=== PATIENT | female | born 1945 | race Caucasian/White ===

== ENCOUNTER 2017-02-16 11:26 | Day surgery (SDC) | payer MEDICARE, OTHER ==
--- NOTE | ~2017-02-16 | EGD ---
EGD REPORT [facility] [address] [address] NAME: RIANA WALLS : [birth year] STATUS : REG [facility] PAT#: [id number] AGE: 71 ADM/REG DATE : 02/16/17 MR#: [id number] REPORT SERV DATE: 02/16/17 DICTATED BY: ELIAS FRANCO DATE: 02/16/17 REPORT STATUS : Draft [facility]ANS[facility]IBED [facility]: [facility] DATE: 02/16/17 Endoscopy Center Patient Name: Riana Walls Date of : 1945 Attending MD: ELIAS FRANCO MD Procedure Date No Time: 02/16/2017 Procedure: Upper GI endoscopy Indications: Epigastric abdominal pain, Nausea, Weight loss Referring MD: MARLA Yip MD, NICOLE STEPHENSON JR., MD Medicines: as per anesthesia Complications: No immediate complications. Procedure: Pre-Anesthesia Assessment: - ASA Grade Assessment: III - A patient with severe systemic disease. After obtaining informed consent, the endoscope was passed under direct vision. Throughout the procedure, the patient's blood pressure, pulse, and oxygen saturations were monitored continuously. The GIF [id number] was introduced through the mouth, and advanced to the third part of duodenum. The upper GI endoscopy was accomplished without difficulty. The patient tolerated the procedure. Findings: The examined esophagus was normal. A small amount of food (residue) was found in the gastric body. The cardia and gastric fundus were normal on retroflexion. The examined duodenum was normal. Impression: - Normal esophagus. - A small amount of food (residue) in the stomach. - Normal examined duodenum. Recommendation: - Continue present medications. Procedure Code(s): --- Professional --- 25930, Esophagogastroduodenoscopy, flexible, transoral; diagnostic, including collection of specimen(s) by brushing or washing, when performed (separate procedure) Diagnosis Code(s): --- Professional --- R10.13, Epigastric pain R11.0, Nausea R63.4, Abnormal weight loss EGD REPORT [facility] [address] [address] NAME: RIANA WALLS : [birth year] STATUS : REG [facility]#: [id number] AGE: 71 ADM/REG DATE : 02/16/17 MR#: [id number] REPORT SERV DATE: 02/16/17 DICTATED BY: ELIAS FRANCO. DATE: 02/16/17 REPORT STATUS : Draft TRANSCRIBED BY: [employer] DATE: 02/16/17 CPT copyright 2013 [employer]. All rights reserved. The codes documented in this report are preliminary and upon remote control assembler review may be revised to meet current compliance requirements. ELIAS FRANCO MD 02/16/2017 2:10 PM This report has been signed electronically. Number of Addenda: 0 Note Initiated On: 02/16/2017 1:43 PM Scope Withdrawal Time 0 hours 0 minutes 0 seconds [id number] [id number]
[~2017-02-16 11:26] MED LIST: ADVAIR250 INH; ASAB PO; BENTYL20 PO; BREO ELLIPTA INH; BYETTA10 SC; CIP5 PO; COREG6 PO; CRESTOR10 PO; HALF81 PO; HUMAPUMP SC; HYGROTON 25 MG25 MG PO; IBU800 PO; IMU PO; IMURAN50 M1 OR; INSNOVR SC; KAPIDEX60 MG PO; LEVEMFLXPN SC; LIPITOR20 PO; LOFIB160 PO; LOPID6 PO; MAGOX4 PO; MEG20 PO; MICARDIS40 PO; NOLV10 PO; NOVLOGPUMP SC; NOVOLOGMIX SC; NOVOPEN SC; PR25 PO; PROAIR HFA INH; PROTONIX PO; SANDOSTATIN IV; SINGULAIR1 PO; SYMBICORT 80/4.1 INH INH; TAMOXIFEN10 MG OR; TRICOR145 PO; TRILIPIX135 MG PO; VIT B; VIT B PO; VITAMIN D; VITAMIN D PO; ZESTORETIC1 TA1 PO; [UNRECOGNIZED DRUG - REMARK]
[2017-05-30] MEDS ORDERED: ASAB PO (13:10)
[2017-05-30] MEDS ORDERED: PRAVAC PO (13:11)
[2017-05-30] MEDS ORDERED: NORV5 PO (13:11)
[2017-05-30] MEDS ORDERED: PROAIR HFA INH (13:12)
[2017-05-30] MEDS ORDERED: IBU800 PO (13:13)
== END 2017-02-16 23:59 | disposition home or self-care (01) ==
LOC: DMU 11:26
PROVIDERS: Internal Medicine Gastroenterology
PROC: 0DJ08ZZ Inspection of Upper Intestinal Tract, Via Natural or Artificial Opening Endoscopic (ICD-10-PCS; principal; 2017-02-16 12:30)
DX: R10.13 Epigastric pain (principal); E11.9 Type 2 diabetes mellitus without complications; E78.00 Pure hypercholesterolemia, unspecified; E16.2 Hypoglycemia, unspecified; I25.10 Atherosclerotic heart disease of native coronary artery without angina pectoris; J45.909 Unspecified asthma, uncomplicated; I10 Essential (primary) hypertension; K50.90 Crohn's disease, unspecified, without complications; K57.90 Diverticulosis of intestine, part unspecified, without perforation or abscess without bleeding; K52.9 Noninfective gastroenteritis and colitis, unspecified; K21.9 Gastro-esophageal reflux disease without esophagitis; Z88.1 Allergy status to other antibiotic agents; Z79.899 Other long term (current) drug therapy; Z79.4 Long term (current) use of insulin; Z79.82 Long term (current) use of aspirin; Z79.51 Long term (current) use of inhaled steroids; Z92.3 Personal history of irradiation; Z90.49 Acquired absence of other specified parts of digestive tract; Z90.710 Acquired absence of both cervix and uterus; Z96.41 Presence of insulin pump (external) (internal); Z86.11 Personal history of tuberculosis; Z85.3 Personal history of malignant neoplasm of breast; Z85.05 Personal history of malignant neoplasm of liver
CPT/HCPCS: 82962; J2405

== ENCOUNTER 2017-03-05 20:05 | Inpatient (IN) | payer MEDICARE, OTHER ==
--- NOTE | ~2017-03-05 | CN ---
Consultation Report [facility] [address] [facility] [place]. [address] NAME: AISHWARYA VO : [birth year] STATUS : ADM Mihir PAT#: [id number] AGE: 71 ADM/REG DATE : 03/05/17 MR#: [id number] REPORT SERV DATE: 03/06/17 DICTATED BY: MARCELO URBANO DATE: 03/06/17 REPORT STATUS : Draft TRANSCRIBED BY: MODL DATE: 03/06/17 CONSULTATION DATE OF CONSULTATION: REASON FOR REFERRAL: Carcinoid tumor. HISTORY OF PRESENT ILLNESS: Ms. Vo is a 71-year-old woman. 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 She has had a surgical resection in 06/09/2015, with resection of the primary nodes and liver lesions, with RFA of additional liver lesions on 09/06. She has done well since that time, with stable disease. 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 She has coronary artery disease, unstable, and Crohn's disease, with some chronic diabetes. She has low potassium. She is now admitted with fever, hypokalemia, which she tells me is stable, and diarrhea. PAST MEDICAL HISTORY: Coronary artery disease, Crohn's disease, carcinoid syndrome, diabetes, ectopic thyroid, and hypertension. SOCIAL HISTORY: She is single. She has never smoked. She does not use alcohol. FAMILY HISTORY: A maternal aunt with breast cancer. There is no family history of ovarian cancer. REVIEW OF SYSTEMS: Positive for diarrhea, fever, and abdominal pain. All other systems were reviewed and are negative. PHYSICAL EXAMINATION: GENERAL: Reveals a well-developed woman, in no acute distress. VITAL SIGNS: Temperature 98.7, pulse 79, blood pressure 114/55, respiratory rate 18. Her maximum temperature was a 101 degrees on December 30, and a max of 99.7 during this admission. HEENT: Eye exam shows lids and conjunctivae are without lesions and now the lips and gums are without abnormalities. SKIN: Without rash or nodules. CARDIOVASCULAR: Reveals regular rate and rhythm. There is no murmur. There is trace edema. ABDOMEN: Soft, mildly tender. LABORATORY DATA: Potassium is 2.6, amylase is 21, AST is 49, alkaline phosphatase is 149, magnesium 1.3, and glucose 181. Chest x-ray shows some atelectasis and a CT scan done without contrast shows no acute pathology, with decreasing of liver abnormalities compared Consultation Report [place] [address] [place]. [address] NAME: AISHWARYA VO : [birth year] STATUS : ADM Mihir PAT#: [id number] AGE: 71 ADM/REG DATE : 03/05/17 MR#: [id number] REPORT SERV DATE: 03/06/17 DICTATED BY: MARCELO URBANO DATE: 03/06/17 REPORT STATUS : Draft TRANSCRIBED BY: MODL DATE: 03/06/17 to June 2016. I have not yet compared this to other images. ASSESSMENT: 1. Carcinoid tumor, this appears stable. 2. Carcinoid syndrome, I doubt this is acute, things are directly related to that, she has been on octreotide. 3. Fever, etiology are unclear. 4. Hypokalemia and hypomagnesemia, being replaced. I will follow along with you. I think she is best managed with supportive care at this time. MINI/CORRIE Marcelo Urbano M.D. / [id number] CC: MD Liseth Soriano II, Vicky Cordova Jr., N.P. David Collins, M.D.
--- NOTE | ~2017-03-05 | HP ---
History And Physical [address] [place]. [address] NAME: AISHWARYA WALLS : [birth year] STATUS : ADM Mihir PAT#: [id number] AGE: 71 ADM/REG DATE : 03/05/17 MR#: [id number] REPORT SERV DATE: 03/06/17 DICTATED BY: JASBIR JASSO DATE: 03/06/17 REPORT STATUS : Draft TRANSCRIBED BY: MODL DATE: 03/06/17 DATE OF ADMISSION: 03/05/2017 CHIEF COMPLAINT: This 71-year-old female, presenting with severe nausea and diarrhea and abdominal pain with evidence of hypokalemia. HISTORY OF PRESENTING ILLNESS: The patient's history was obtained through careful interview with the patient daughter, granddaughter coupled with [facility] and [facility] medical records. The patient has longstanding underlying metastatic carcinoid. It was diagnosed in 2014. She had known metastatic disease to the liver and other parts of the abdomen with significant surgical resection performed in 2014. She is on chronic octreotide and is followed by Dr. Ricardo. It is in this context that the patient has felt ill for a couple of months now with episodes of nausea, diarrhea, but no vomiting. She had a recent upper endoscopy under the care of Dr. Patten that was not very revealing. But on 03/04/2017, after scientologist she had worsening nausea and diarrhea and increasing abdominal pain now. She describes upper abdominal discomfort a cramping fullness quality, exacerbated by food intake, a 7/10 to 8/10 severity. Then tonight leading up to admission, she developed a fever of 102.0 without chills. She has been on no recent antibiotics. Chronic pain complaints include left leg pain and deep upper back discomfort for about two months. REVIEW OF SYSTEMS: Otherwise, a 14-point review of systems was obtained and was negative. PAST MEDICAL HISTORY: 1. Metastatic carcinoid cancer, followed by Dr. Ricardo in 2014 on chronic octreotide. 2. Left breast cancer, 2008, status post radiation surgery and tamoxifen. 3. Diabetes. 4. Hypertension. 5. Asthma. 6. Urinary tract infection with pyelonephritis. 7. Ventral hernia. 8. Crohn's disease with peptic ulcer disease, seen by Dr. Patten since 2005. 9. Stroke 2002. 10.Possible gastroparesis ?.. History And Physical [address] [place]. [address] NAME: AISHWARYA WALLS : [birth year] STATUS : ADM Mihir PAT#: [id number] AGE: 71 ADM/REG DATE : 03/05/17 MR#: [id number] REPORT SERV DATE: 03/06/17 DICTATED BY: JASBIR JASSO DATE: 03/06/17 REPORT STATUS : Draft TRANSCRIBED BY: MODL DATE: 03/06/17 PAST SURGICAL HISTORY: 1. Left breast lumpectomy 2008 for breast cancer. 2. Small bowel resection and partial colectomy with 18 inches of bowel removed for metastatic carcinoid tumor. 3. Liver wedge resection. 4. Hysterectomy. 5. Cholecystectomy. 6. Appendectomy. ALLERGIES: TO ERYTHROMYCIN. SOCIAL HISTORY: Lives in [place], [place], is , lives alone. She has a son and daughter who live close by. No tobacco abuse. No alcohol abuse. FAMILY HISTORY: Diabetes, coronary artery disease, stroke. Aunt with breast cancer. CURRENT MEDICATIONS: Include Coreg 6.25 mg p.o. b.i.d., chlorthalidone 25 mg p.o. daily, Dexilant 60 mg p.o. daily, Lopid 600 mg p.o. b.i.d., insulin pump, lisinopril/hydrochlorothiazide 20/25, Zofran p.r.n., potassium 20 mEq p.o. daily, tramadol p.r.n., and octreotide every month. PHYSICAL EXAMINATION: VITAL SIGNS: Temperature 99.7, pulse 89, blood pressure 180/79, respiratory rate 18, O2 saturation 95% on room air. GENERAL: An ill-appearing female, in evidence of distress secondary to abdominal pain, nausea, and diarrhea. HEENT: Pupils are equal, round, and reactive to light. No conjunctival pallor. No scleral icterus. Nares are patent. Oropharynx is clear of obstruction. Dry mucous membranes. NECK: Trachea midline. No thyromegaly. LYMPH: No cervical lymphadenopathy. No supraclavicular lymphadenopathy. RESPIRATORY: Clear to auscultation at bases. No wheezes, rales, or rhonchi. Normal respiratory effort. CARDIOVASCULAR: Regular rate and rhythm. I do not appreciate any murmurs rubs, or gallops. No extremity edema is appreciated. ABDOMEN: Minimally tender throughout but has diffuse tenderness that is nonfocal. No guarding, no rebound. Nondistended. Active bowel sounds. No hepatosplenomegaly. DERMATOLOGICAL: Warm and dry extremities. No pallor. No cyanosis. PSYCHIATRIC: Normal affect. Good mood. Alert and oriented x3. LABORATORY DATA: White blood cell count 7.4, hemoglobin 12, hematocrit 36, platelets 159. Sodium 139, potassium 2.5, chloride 101, bicarb 33, BUN 15, creatinine 0.8, glucose 55. Procalcitonin negative. Lactic acid 1.0. INR 1.2. Liver enzymes within normal limits. Urinalysis negative for infection. STUDIES: 1. Chest x-ray by my own evaluation shows no acute cardiopulmonary process. History And Physical [address] [address] NAME: AISHWARYA WALLS : [birth year] STATUS : ADM Mihir PAT#: [id number] AGE: 71 ADM/REG DATE : 03/05/17 MR#: [id number] REPORT SERV DATE: 03/06/17 DICTATED BY: JASBIR JASSO DATE: 03/06/17 REPORT STATUS : Draft TRANSCRIBED BY: CORRIE DATE: 03/06/17 2. EKG by my own evaluation shows sinus rhythm, no major abnormalities. 3. CT scan of the abdomen and pelvis shows no acute intra-abdominal process. ASSESSMENT AND PLAN: 1. Severe nausea. I would like to check a gastric emptying study. Place on Zofran IV for now. 2. Hypokalemia. Replace potassium. Check magnesium. Discontinue indefinitely patient's chlorthalidone and hydrochlorothiazide. 3. Metastatic carcinoid. Consult Dr. Ricardo, on chronic octreotide. 4. Fever of 102.0 but no identifiable source of infection otherwise. A negative procalcitonin, negative urinalysis, negative chest x-ray, negative CT scan of the abdomen. Question whether the fever could be related to underlying carcinoid tumors ?. Place on Tylenol now. 5. Leg pain. Check a venous Doppler ultrasound to rule out DVT. 6. Hypoglycemia. Obtain primary special educator consult to adjust insulin pump. 7. Diarrhea. Check studies. Question whether this is from carcinoid ?.. KPL/MODL Jasbir Jasso M.D. / [id number] CC: MD Liseth Soriano II, Vicky Samson M.D.
--- NOTE | ~2017-03-05 | DS ---
Discharge Summary [place] [address] [facility] [place]. [address] NAME: AISHWARYA WALLS : [birth year] STATUS : DIS IN PAT#: [id number] AGE: 71 ADM/REG DATE : 03/06/17 MR#: [id number] REPORT SERV DATE: 03/09/17 DICTATED BY: DATE: REPORT STATUS : Draft TRANSCRIBED BY: MODL DATE: 03/08/17 ADMISSION DATE: 03/06/2017 DISCHARGE DATE: 03/08/2017 DISCHARGE DIAGNOSES: 1. Acute fever, resolved. 2. Chronic diarrhea. 3. Mild leukopenia/neutropenia. 4. Mild thrombocytopenia. 5. Elevated liver enzymes. 6. Metastatic carcinoid cancer with carcinoid syndrome. 7. Chronic nausea. 8. Abdominal pain, improved. 9. Hypertension. 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 12.Type 2 diabetes mellitus with one episode of hypoglycemia. CONSULTATIONS: Marcelo Ricrado M.D., [facility], 03/06/2017. PERTINENT TESTS AND PROCEDURES: 1. Blood cultures x2 sites collected 03/05/2017. Preliminary result, no growth at two days. 2. Stool studies specimen collected 03/07/2017. Final results, ova and parasite screen negative. No fecal leukocytes present. C. diff negative. 3. Gastric emptying study 03/06/2017. Impression: Normal gastric emptying study. 4. Right lower extremity venous Doppler, 03/06/2017. Impression: No evidence of acute right lower extremity deep venous thrombus. 5. Chest x-ray, 03/05/2017. Impression: Possibly early infiltrate and/or atelectasis developing in the right medial lung base. 6. CT of the abdomen and pelvis without contrast, 03/05/2017. Impression:. a. No acute abdominal or pelvic pathology. No imaging explanation for abdominal pain, nausea, and fever. b. Decreasing size of probable liver metastatic disease at posterior liver dome compared to November [address] CT. c. Stable changes of cholecystectomy, appendectomy, hysterectomy. d. Status post small-bowel anastomosis left mid abdomen. e. Broad-based hernia defect superior abdomen epigastric region containing only mesenteric fat. CHIEF COMPLAINT UPON ADMISSION: Severe nausea and diarrhea, and abdominal pain with evidence of hypokalemia. HOSPITAL COURSE: Please refer to history and physical dated 03/06/[address] Riley Tubbs for complete details pertaining to the patient's initial presentation upon admission and health history. Discharge Summary [place] [address] [place]. [address] NAME: AISHWARYA WALLS : [birth year] STATUS : DIS IN PAT#: [id number] AGE: 71 ADM/REG DATE : 03/06/17 MR#: [id number] REPORT SERV DATE: 03/09/17 DICTATED BY: DATE: REPORT STATUS : Draft TRANSCRIBED BY: MODL DATE: 03/08/17 Please also refer to consultation dated 03/06/[address] Marcelo Ricardo, Oncology. Briefly, the patient is a 71-year-old female, who presented to the emergency department on 03/05/2017 with complaints of severe nausea, diarrhea, and abdominal pain with evidence of hypokalemia. It is noteworthy to mention that the patient was recently hospitalized between the dates of 03/01/2017 and 03/04/2017 for complaint of fever, dysuria, and weakness. Discharge diagnoses from [facility] on 01/02/2017 included diagnoses of sepsis with fever and leukocytosis, urinary tract infection with possible pyelonephritis, acute kidney injury, and metastatic carcinoid. The patient has a long-standing history of metastatic carcinoid diagnosed in 2014 with metastatic disease to the liver and omentum status post significant surgical resection in 2014. The patient is on chronic octreotide and is followed by Dr. Ricardo at [facility]. Initial diagnostic evaluation included CT scan of the abdomen and pelvis, which did not show any acute intraabdominal process in the setting of severe nausea and abdominal pain. The patient was admitted for further evaluation and treatment. 1. Acute fever. The patient reported maximum temperature of 102 degrees Fahrenheit at home. The patient had remained afebrile during this entire admission. The patient never had any signs or symptoms to indicate sepsis. Exact etiology of fever remains unclear at the time of discharge. No antibiotic therapy was ever indicated. 2. Chronic diarrhea, this is secondary to carcinoid syndrome. The patient is on chronic octreotide therapy. Stool studies obtained during this admission were all negative. 3. Mild leukopenia/neutropenia acute. Today the patient's white blood count trended down to 3.8, and A1c was reported to be 1140. This may be related to new eruption of fever blisters over the past 24 hours to left lower lip. The patient will follow up for additional labs on Sunday of next week. 4. Mild thrombocytopenia. Platelets were reported to be 139 today. The patient will follow up for repeat labs next week. 5. Increased liver enzymes. This is ongoing secondary to liver metastases. Counts are trending down and stable. 6. Metastatic carcinoid cancer. The patient received octreotide every 30 days and is followed by Dr. Ricardo. She will follow up next Sunday for labs and office visit. 7. Chronic nausea. The patient responded well to scheduled Zofran three times daily 30 minutes before meals and at bedtime as needed. This will continue at home. The patient has not been vomiting. 8. Abdominal pain. Per the patient, she was suffering from significant upper abdominal pain upon admission. CT scan of the abdomen was normal. The patient's pain is almost resolved at this time. 9. Hypertension. The patient takes carvedilol, lisinopril/HCTZ, and chlorthalidone. Lisinopril/HCTZ and chlorthalidone were held upon admission secondary to hypokalemia. Discharge Summary [place] [address] [place]. [address] NAME: AISHWARYA WALLS : [birth year] STATUS : DIS IN PAT#: [id number] AGE: 71 ADM/REG DATE : 03/06/17 MR#: [id number] REPORT SERV DATE: 03/09/17 DICTATED BY: DATE: REPORT STATUS : Draft TRANSCRIBED BY: MODL DATE: 03/08/17 The patient's potassium is stable at discharge, the patient was instructed to restart chlorthalidone and lisinopril/HCTZ, and potassium will be monitored on an outpatient basis. The patient's blood pressure has remained stable. 10.Type 2 diabetes mellitus with one event of hypoglycemia. nurse educator followed the patient throughout this admission. The patient is self responsible for insulin pump and is able to manage without issues. The patient's insulin dose was decreased between the hours of 8:00 p.m. and 10:00 p.m., she has responded well and has had no more hypoglycemic events. 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 The patient will receive Valtrex 1000 mg p.o. every 12 hours x4 doses. First dose will be given before discharge today. DISCHARGE CONDITION: At the time of discharge the patient is hemodynamically stable. DISCHARGE DIET: ADA 2000 calorie diet. DISCHARGE MEDICATIONS: 1. Carvedilol 6.25 mg tablet p.o. twice daily. 2. Lopid 600 mg tablet p.o. daily before breakfast and supper. 3. NovoLog per insulin pump managed per current schedule. 4. Zofran 4 mg tablet p.o. three times daily 30 minutes before meals and at bedtime as needed. 5. Dexilant 60 mg tablet p.o. daily. 6. Tylenol 325 mg tablet, take two tablets p.o. every 4 hours as needed. 7. Ultram 50 mg tablet p.o. every 6 hours as needed. 8. Sandostatin injection every 30 days to be managed per Oncology. 9. Klor-Con 20 mEq p.o. daily. The patient is having difficult time swallowing pill, the patient was provided prescription for 40 mEq/15 mL liquid to be given 7.5 mL to equal 20 mEq p.o. daily. 10.Lisinopril/HCTZ 20/25 mg tablet, one tablet p.o. daily, this medication was held during admission secondary to hypokalemia, the patient was instructed to resume this medication tomorrow and follow up with outpatient labs on Sunday. If potassium is reported to be low again next week, the patient is to hold medication and call Dr. Cartagena at [facility] for medication evaluation. 11.Hygroton 25 mg tablet, this medicine was held during this admission secondary to hypokalemia. The patient will resume this medication tomorrow. The patient will check potassium next week and if hypokalemia is present the patient will follow up with Cardiology for med review. 12.Valtrex 1000 mg tablet p.o. every 12 hours x4 doses. DISCHARGE INSTRUCTIONS: 1. Follow up with Dr. Ricardo at [facility] next Sunday for office visit and labs. 2. Follow up with Dr. Cartagena [facility] for routine visit within the next four to six weeks already scheduled. The patient was instructed to return to the ER for any acute onset of fever 100.4 degrees or Discharge Summary [address] [place] [address] NAME: AISHWARYA WALLS : [birth year] STATUS : DIS IN PAT#: [id number] AGE: 71 ADM/REG DATE : 03/06/17 MR#: [id number] REPORT SERV DATE: 03/09/17 DICTATED BY: DATE: REPORT STATUS : Draft TRANSCRIBED BY: CORRIE DATE: 03/08/17 higher lasting more than one hour, recurrence of intractable diarrhea, acute onset of abdominal pain, intractable nausea, vomiting, or any other concerns that are deviations from her baseline status at the time of this discharge. PRIMARY ONCOLOGIST: Marcelo Ricardo M.D. PRIMARY [employer] F[employer] MANAGER: Tyrell Cartagena M.D. PRIMARY CARE PROVIDER: Liseth Beyer, nurse practitioner. DICTATED BY: WINSTON Castelan/CORRIE WINSTON Castelan / [id number] CC: MD Liseth Soriano II, NP
[2017-03-05 21:09] LABS: BASOPHILS 0.3 %; BASOPHILS ABSOLUTE 0.02 10/3/uL (0.0-0.16); EOSINOPHILS 0.3 %; EOSINOPHILS ABSOLUTE 0.02 10/3/uL (0.0-0.53); HEMOGLOBIN 12.3 g/dL (12.0-16.0); IMMATURE GRANULOCYTES 0.3 %; IMMATURE GRANULOCYTES ABSOLUTE 0.02 10/3/uL (0.0-0.11); LYMPHOCYTES 17.2 %; LYMPHOCYTES ABSOLUTE 1.27 10/3/uL (0.67-4.30); MEAN CORPUS HGB CONC 34.2 g/dL (32.0-36.0); MEAN CORPUSCULAR HEMOGLOB 28.9 pg (26.0-34.0); MEAN PLATELET VOLUME 11.2 fL (9.2-13.0); MONOCYTES 9.8 %; MONOCYTES ABSOLUTE 0.72 10/3/uL (0.21-1.20); NEUTROPHILS 72.1 %; NEUTROPHILS ABSOLUTE 5.33 10/3/uL (2.02-8.40); PLATELET COUNT 159 10/3/uL (150-400); RBC DISTRIBUTION WIDTH 14.8 % (12.0-16.0); RED CELL COUNT 4.25 10/6/uL (4.0-5.6); WHITE BLOOD CELLS 7.4 10/3/uL (4.5-10.5)
[2017-03-05 21:15] LABS: MEAN CORPUSCULAR VOLUME 84.7 fL (80-100)
[2017-03-05 21:27] LABS: A/G RATIO 0.8 (0.7-1.9); ALBUMIN 3.5 G/DL (3.5-5.0); BUN (BLOOD UREA NITROGEN) 15 MG/DL (6-23); CALCIUM, SERUM 8.3 MG/DL (8.5-10.4); CHLORIDE, SERUM 101 MMOL/L (96-112); CO2 (CARBON DIOXIDE) 33 MMOL/L (24-34); CREATININE 0.85 MG/DL (0.55-1.02); GFR AFRICAN AMERICAN 81 ML/MIN (>=60); GFR NON AFRICAN AMERICAN 70 ML/MIN (>=60); GLOBULIN 4.2 G/DL (2.5-4.1); GLUCOSE, SERUM 55 MG/DL (60-99); SGOT(AST) 47 U/L (5-40); SGPT(ALT) 29 U/L (5-65); SODIUM, SERUM 139 MMOL/L (135-148); TOTAL BILIRUBIN 0.5 MG/DL (0-1.2); TOTAL PROTEIN 7.7 G/DL (6.0-8.5)
[2017-03-05 21:30] LABS: ALKALINE PHOSPHATASE 185 U/L (45-117); BAND NEUTROPHILS 1 %; ER DIFF TAT 0 Hrs 27 Mins; LYMPHOCYTES 12 %; LYMPHOCYTES ABSOLUTE (CALC) 0.89 10/3/uL (0.67-4.30); MONOCYTES 9 %; MONOCYTES ABSOLUTE (CALC) 0.67 10/3/uL (0.21-1.20); NEUTROPHILS ABSOLUTE (CALC) 5.85 10/3/uL (2.02-8.40); POTASSIUM, SERUM 2.5 MMOL/L (3.5-5.3); SEGMENTED NEUTROPHIL (0) 78 %; TOTAL NUCLEATED CELLS 100
[2017-03-05 21:32] LABS: PLATELET ESTIMATE ADQ (ADEQUATE); RBC MORPHOLOGY NORM (NORMAL)
[2017-03-05] MEDS ORDERED: ZOFRAN4 PO (21:34)
[2017-03-05] MEDS ORDERED: KLOR-CON M2020 MEQ PO (21:35)
[2017-03-05] MEDS ORDERED: ULTRAM50 PO (21:35)
[2017-03-05] MEDS ORDERED: KAPIDEX60 MG PO (21:35)
[2017-03-05] MEDS ORDERED: ZESTORETIC1 TA1 PO (21:36)
[2017-03-05] MEDS ORDERED: COREG6 PO (21:36)
[2017-03-05] MEDS ORDERED: LOPID6 PO (21:36)
[2017-03-05] MEDS ORDERED: HYGROTON 25 MG25 MG PO (21:36)
[2017-03-05] MEDS ORDERED: NOVLOGPUMP SC (21:38)
[2017-03-05 21:43] LABS: INTERNATIONAL NORMAL RATI 1.2 UNITS (-); PARTIAL THROMBO TIME 38.3 SEC (22.5-37.2); PROTIME (NOT ORD) 14.7 SEC (12.0-14.5)
[2017-03-05 21:56] LABS: PROCALCITONIN <0.05 ng/mL (<0.5)
[2017-03-05 23:49] LABS: ASCORBIC ACID (UR NOT ORDER) NEG (NEG); BILIRUBIN, URINE NEGATIVE (NEG); ER URINALYSIS TAT 0 Hrs 00 Mins; KETONE, URINE NEGATIVE (NEG); LEUKOCYTE ESTERASE(NOT OR NEG (NEG); NITRITE (URINE) NEG (NEG); WBC (NOT ORDERED) (RFLEX) < 1 (0-5)
[2017-03-06 05:25] LABS: BASOPHILS 0.1 %; BASOPHILS ABSOLUTE 0.01 10/3/uL (0.0-0.16); EOSINOPHILS 0.1 %; EOSINOPHILS ABSOLUTE 0.01 10/3/uL (0.0-0.53); HEMATOCRIT 33.8 % (36.0-48.0); HEMOGLOBIN 11.2 g/dL (12.0-16.0); IMMATURE GRANULOCYTES 0.1 %; IMMATURE GRANULOCYTES ABSOLUTE 0.01 10/3/uL (0.0-0.11); LYMPHOCYTES 22.8 %; LYMPHOCYTES ABSOLUTE 1.66 10/3/uL (0.67-4.30); MEAN CORPUS HGB CONC 33.1 g/dL (32.0-36.0); MEAN CORPUSCULAR HEMOGLOB 28.3 pg (26.0-34.0); MEAN CORPUSCULAR VOLUME 85.4 fL (80-100); MEAN PLATELET VOLUME 11.9 fL (9.2-13.0); MONOCYTES 13.4 %; MONOCYTES ABSOLUTE 0.98 10/3/uL (0.21-1.20); NEUTROPHILS 63.5 %; NEUTROPHILS ABSOLUTE 4.62 10/3/uL (2.02-8.40); PLATELET COUNT 97 10/3/uL (150-400); RED CELL COUNT 3.96 10/6/uL (4.0-5.6); WHITE BLOOD CELLS 7.3 10/3/uL (4.5-10.5)
[2017-03-06 05:26] LABS: MANUAL DIFF NO %
[2017-03-06 05:32] LABS: INTERNATIONAL NORMAL RATI 1.3 UNITS (-); PARTIAL THROMBO TIME 37.5 SEC (22.5-37.2); PROTIME (NOT ORD) 15.7 SEC (12.0-14.5)
[2017-03-06 05:55] LABS: A/G RATIO 0.8 (0.7-1.9); BUN (BLOOD UREA NITROGEN) 16 MG/DL (6-23); CHLORIDE, SERUM 103 MMOL/L (96-112); CREATININE 0.91 MG/DL (0.55-1.02); GFR AFRICAN AMERICAN 75 ML/MIN (>=60); GFR NON AFRICAN AMERICAN 64 ML/MIN (>=60); GLOBULIN 3.8 G/DL (2.5-4.1); SGOT(AST) 49 U/L (5-40); SGPT(ALT) 30 U/L (5-65); SODIUM, SERUM 140 MMOL/L (135-148); TOTAL BILIRUBIN 0.5 MG/DL (0-1.2); TOTAL PROTEIN 6.8 G/DL (6.0-8.5)
[2017-03-06 05:56] LABS: ALKALINE PHOSPHATASE 149 U/L (45-117); CO2 (CARBON DIOXIDE) 26 MMOL/L (24-34); GLUCOSE, SERUM 181 MG/DL (60-99); POTASSIUM, SERUM 2.6 MMOL/L (3.5-5.3); ULTRASENSITIVE TSH 0.615 MCIU/ML (0.358-3.740)
[2017-03-07 07:18] LABS: BASOPHILS 0.4 %; BASOPHILS ABSOLUTE 0.02 10/3/uL (0.0-0.16); EOSINOPHILS 0.9 %; EOSINOPHILS ABSOLUTE 0.05 10/3/uL (0.0-0.53); HEMATOCRIT 35.2 % (36.0-48.0); HEMOGLOBIN 11.7 g/dL (12.0-16.0); LYMPHOCYTES 37.5 %; LYMPHOCYTES ABSOLUTE 2.03 10/3/uL (0.67-4.30); MEAN CORPUS HGB CONC 33.2 g/dL (32.0-36.0); MEAN CORPUSCULAR HEMOGLOB 28.3 pg (26.0-34.0); MEAN PLATELET VOLUME 11.6 fL (9.2-13.0); MONOCYTES 10.2 %; MONOCYTES ABSOLUTE 0.55 10/3/uL (0.21-1.20); NEUTROPHILS ABSOLUTE 2.76 10/3/uL (2.02-8.40); RBC DISTRIBUTION WIDTH 14.7 % (12.0-16.0); RED CELL COUNT 4.14 10/6/uL (4.0-5.6); WHITE BLOOD CELLS 5.4 10/3/uL (4.5-10.5)
[2017-03-07 07:19] LABS: MANUAL DIFF NO %; PLATELET COUNT 145 10/3/uL (150-400)
[2017-03-07 07:35] LABS: A/G RATIO 0.8 (0.7-1.9); CALCIUM, SERUM 8.7 MG/DL (8.5-10.4); CHLORIDE, SERUM 101 MMOL/L (96-112); CREATININE 0.77 MG/DL (0.55-1.02); GFR AFRICAN AMERICAN 91 ML/MIN (>=60); GFR NON AFRICAN AMERICAN 79 ML/MIN (>=60); GLOBULIN 3.8 G/DL (2.5-4.1); GLUCOSE, SERUM 164 MG/DL (60-99); SGOT(AST) 62 U/L (5-40); SGPT(ALT) 40 U/L (5-65); SODIUM, SERUM 140 MMOL/L (135-148); TOTAL BILIRUBIN 0.4 MG/DL (0-1.2); TOTAL PROTEIN 6.8 G/DL (6.0-8.5)
[2017-03-07 07:36] LABS: ALKALINE PHOSPHATASE 133 U/L (45-117); BUN (BLOOD UREA NITROGEN) 12 MG/DL (6-23); CO2 (CARBON DIOXIDE) 32 MMOL/L (24-34)
[2017-03-08 05:05] LABS: BASOPHILS 0.3 %; BASOPHILS ABSOLUTE 0.01 10/3/uL (0.0-0.16); EOSINOPHILS 1.6 %; EOSINOPHILS ABSOLUTE 0.06 10/3/uL (0.0-0.53); HEMATOCRIT 36.2 % (36.0-48.0); HEMOGLOBIN 11.9 g/dL (12.0-16.0); LYMPHOCYTES 59.4 %; LYMPHOCYTES ABSOLUTE 2.28 10/3/uL (0.67-4.30); MEAN CORPUS HGB CONC 32.9 g/dL (32.0-36.0); MEAN CORPUSCULAR HEMOGLOB 28.1 pg (26.0-34.0); MEAN CORPUSCULAR VOLUME 85.6 fL (80-100); MEAN PLATELET VOLUME 11.4 fL (9.2-13.0); MONOCYTES 9.1 %; MONOCYTES ABSOLUTE 0.35 10/3/uL (0.21-1.20); NEUTROPHILS 29.6 %; NEUTROPHILS ABSOLUTE 1.14 10/3/uL (2.02-8.40); PLATELET COUNT 139 10/3/uL (150-400); RBC DISTRIBUTION WIDTH 14.7 % (12.0-16.0); RED CELL COUNT 4.23 10/6/uL (4.0-5.6); WHITE BLOOD CELLS 3.8 10/3/uL (4.5-10.5)
[2017-03-08 05:08] LABS: MANUAL DIFF NO %
[2017-03-08 05:18] LABS: A/G RATIO 0.7 (0.7-1.9); ALBUMIN 2.9 G/DL (3.5-5.0); BUN (BLOOD UREA NITROGEN) 13 MG/DL (6-23); CALCIUM, SERUM 8.9 MG/DL (8.5-10.4); CHLORIDE, SERUM 104 MMOL/L (96-112); CO2 (CARBON DIOXIDE) 29 MMOL/L (24-34); CREATININE 0.88 MG/DL (0.55-1.02); GFR AFRICAN AMERICAN 78 ML/MIN (>=60); GFR NON AFRICAN AMERICAN 67 ML/MIN (>=60); GLUCOSE, SERUM 198 MG/DL (60-99); POTASSIUM, SERUM 3.7 MMOL/L (3.5-5.3); SGPT(ALT) 38 U/L (5-65); SODIUM, SERUM 141 MMOL/L (135-148); TOTAL BILIRUBIN 0.3 MG/DL (0-1.2); TOTAL PROTEIN 6.9 G/DL (6.0-8.5)
[2017-03-08 05:19] LABS: ALKALINE PHOSPHATASE 121 U/L (45-117); SGOT(AST) 51 U/L (5-40)
[2017-03-08] MEDS ORDERED: T PO (18:09)
[2017-03-08] MEDS ORDERED: KCL40UDL PO (18:13)
[2017-03-08] MEDS ORDERED: VALTREX5 PO (18:14)
[2017-05-30] MEDS ORDERED: ASAB PO (13:10)
[2017-05-30] MEDS ORDERED: PRAVAC PO (13:11)
[2017-05-30] MEDS ORDERED: NORV5 PO (13:11)
[2017-05-30] MEDS ORDERED: PROAIR HFA INH (13:12)
[2017-05-30] MEDS ORDERED: IBU800 PO (13:13)
== END 2017-03-08 19:17 | disposition home or self-care (01) | DRG 644 ==
LOC: ER 20:05 → 4EA 23:59
PROVIDERS: Hospitalist; Nurse Practitioner Acute Care; Nurse Practitioner Family
DX: E34.0 Carcinoid syndrome (principal); C7A.00 Malignant carcinoid tumor of unspecified site; C7B.02 Secondary carcinoid tumors of liver; C7B.09 Secondary carcinoid tumors of other sites; D70.9 Neutropenia, unspecified; E87.6 Hypokalemia; I10 Essential (primary) hypertension; B00.1 Herpesviral vesicular dermatitis; E11.9 Type 2 diabetes mellitus without complications
CPT/HCPCS: 71010; 74176; 78264; 80053; 81001; 82150; 82962; 83036; 83605; 83735; 84132; 84145; 84443; 85025; 85610; 85730; 87040; 87328; 87329; 87493; 87493-59; 89055; 93005; 93970; 96374; 96375; 99285; A9270-GY; A9541; J1170; J2405; J3475

== ENCOUNTER 2017-03-24 13:49 | Emergency (ER) | payer MEDICARE, OTHER ==
[~2017-03-24 13:49] MED LIST changes: +KCL40UDL PO; +KLOR-CON M2020 MEQ PO; +T PO; +ULTRAM50 PO; +VALTREX5 PO; +ZOFRAN4 PO
[2017-03-24 14:46] LABS: BASOPHILS 0.3 %; BASOPHILS ABSOLUTE 0.02 10/3/uL (0.0-0.16); EOSINOPHILS 0.4 %; EOSINOPHILS ABSOLUTE 0.03 10/3/uL (0.0-0.53); IMMATURE GRANULOCYTES 0.1 %; IMMATURE GRANULOCYTES ABSOLUTE 0.01 10/3/uL (0.0-0.11); LYMPHOCYTES 15.9 %; MEAN CORPUS HGB CONC 34.1 g/dL (32.0-36.0); MEAN CORPUSCULAR VOLUME 85.1 fL (80-100); MEAN PLATELET VOLUME 11.5 fL (9.2-13.0); MONOCYTES 5.6 %; MONOCYTES ABSOLUTE 0.42 10/3/uL (0.21-1.20); NEUTROPHILS 77.7 %; NEUTROPHILS ABSOLUTE 5.88 10/3/uL (2.02-8.40); PLATELET COUNT 169 10/3/uL (150-400); RBC DISTRIBUTION WIDTH 14.6 % (12.0-16.0); RED CELL COUNT 4.83 10/6/uL (4.0-5.6)
[2017-03-24 14:48] LABS: ER CBC TAT 0 Hrs 07 Mins; HEMATOCRIT 41.1 % (36.0-48.0); MANUAL DIFF NO %; WHITE BLOOD CELLS 7.6 10/3/uL (4.5-10.5)
[2017-03-24 15:02] LABS: A/G RATIO 0.8 (0.7-1.9); ALBUMIN 3.4 G/DL (3.5-5.0); BUN (BLOOD UREA NITROGEN) 17 MG/DL (6-23); CALCIUM, SERUM 8.9 MG/DL (8.5-10.4); CHLORIDE, SERUM 104 MMOL/L (96-112); CO2 (CARBON DIOXIDE) 29 MMOL/L (24-34); CREATININE 0.75 MG/DL (0.55-1.02); GFR AFRICAN AMERICAN 94 ML/MIN (>=60); GFR NON AFRICAN AMERICAN 81 ML/MIN (>=60); GLOBULIN 4.3 G/DL (2.5-4.1); SGPT(ALT) 20 U/L (5-65); SODIUM, SERUM 140 MMOL/L (135-148); TOTAL BILIRUBIN 0.7 MG/DL (0-1.2); TOTAL PROTEIN 7.7 G/DL (6.0-8.5)
[2017-03-24 15:08] LABS: ALKALINE PHOSPHATASE 144 U/L (45-117); GLUCOSE, SERUM 84 MG/DL (60-99); POTASSIUM, SERUM 4.6 MMOL/L (3.5-5.3); SGOT(AST) 31 U/L (5-40)
[2017-03-24 15:49] LABS: ASCORBIC ACID (UR NOT ORDER) NEG (NEG); BILIRUBIN, URINE NEGATIVE (NEG); ER URINALYSIS TAT 0 Hrs 09 Mins; KETONE, URINE NEGATIVE (NEG); LEUKOCYTE ESTERASE(NOT OR NEG (NEG); NITRITE (URINE) NEG (NEG); WBC (NOT ORDERED) (RFLEX) 1 (0-5)
[2017-05-30] MEDS ORDERED: ASAB PO (13:10)
[2017-05-30] MEDS ORDERED: PRAVAC PO (13:11)
[2017-05-30] MEDS ORDERED: NORV5 PO (13:11)
[2017-05-30] MEDS ORDERED: PROAIR HFA INH (13:12)
[2017-05-30] MEDS ORDERED: IBU800 PO (13:13)
== END 2017-03-24 16:44 | disposition home or self-care (01) ==
LOC: ER 13:49
PROVIDERS: Emergency Medicine
DX: E11.649 Type 2 diabetes mellitus with hypoglycemia without coma (principal); Z88.1 Allergy status to other antibiotic agents; Z79.4 Long term (current) use of insulin; Z79.899 Other long term (current) drug therapy
CPT/HCPCS: 80053; 81001; 82962; 85025; 93005; 99285